=== PATIENT | male | born 1990 | race African-American/Black ===

== ENCOUNTER 2017-09-04 13:07 | Inpatient (IN) | payer BC ==
[2017-09-04 13:23] VITALS: BMI 24.7
[2017-09-04] MEDS ORDERED: SODIUM CHLORIDE 1,000 ML IV STA (14:36)
[2017-09-04] MEDS ORDERED: PANTOPRAZOLE SODIUM 40 MG VIAL IVPUSH ONE ×2 (14:36→14:42)
[2017-09-04 14:47] LABS: MCHC 29.7 g/dl (32.0-35.9); MEAN CELL VOLUME 59.4 fl (80-96); MEAN PLT VOLUME 7.1 fl (7.5-11.1); PLATELET COUNT 524 K/MM3 (134-434); RBC 2.53 M/mm3 (4.00-5.60); RDW 21.8 % (11.9-15.9); WHITE BLOOD COUNT 9.5 K/mm3 (4.0-10.0)
--- NOTE | 2017-09-04 14:58 | PDOC ---
History of Present Illness - General Chief Complaint: Rectal Bleed Stated Complaint: UGI BLEED, LOSS OF HEARING (PCP) Time Seen by Provider: 09/04/17 14:18 History Source: Patient Exam Limitations: No Limitations - History of Present Illness Initial Comments: 09/04/17 14:49 Patient is a 27M with history of gastric ulcer x2 (GI - Dr Estrada) and viral meningitis sent here today for upper GI bleed by his PCP Dr Chen. He reports 4-5 days of dark tarry stool. Patient reports that a stool for occult blood was positive at Dr Chen's office today. Patient reports an episode of syncope Monday at 3AM with associated weakness, shortness of breath, and chest pain. Denies fevers, chills, vomiting. Denies pain with urination. Past History - Past Medical History Allergies/Adverse Reactions: Allergies Allergy/AdvReac Type Severity Reaction Status Date / Time No Known Allergies Allergy Verified 09/04/17 13:19 Home Medications: Ambulatory Orders NK [No Known Home Medication] 09/04/17 Asthma: Yes COPD: No - Suicide/Smoking/Psychosocial Hx Smoking Status: No Smoking History: Former smoker Have you smoked in the past 12 months: Yes Number of Cigarettes Smoked Daily: 3 Information on smoking cessation initiated: No 'Breaking Loose' booklet given: 11/30/13 Hx Alcohol Use: No Drug/Substance Use Hx: No Substance Use Type: None Hx Substance Use Treatment: No Review of Systems - Review of Systems Able to Perform ROS?: Yes Comments:: 09/04/17 14:58 GENERAL/CONSTITUTIONAL: No fever or chills. Positive for weakness. HEAD, EYES, EARS, NOSE AND THROAT: No change in vision. No sore throat. CARDIOVASCULAR: Positive for chest pain and shortness of breath RESPIRATORY: No cough, wheezing, or hemoptysis. GASTROINTESTINAL: No nausea, vomiting. Positive for melanotic stool. GENITOURINARY: No dysuria, frequency, or change in urination. MUSCULOSKELETAL: No joint or muscle swelling or pain. No neck or back pain. SKIN: No rash NEUROLOGIC: No headache, vertigo, loss of consciousness, or change in strength/ sensation. ENDOCRINE: No increased thirst. No abnormal weight change HEMATOLOGIC/LYMPHATIC: No anemia, easy bleeding, or history of blood clots. ALLERGIC/IMMUNOLOGIC: No hives or skin allergy. *Physical Exam - Vital Signs Last Vital Signs Temp Pulse Resp BP Pulse Ox 98.9 F 92 H 19 124/62 100 09/04/17 13:19 09/04/17 13:19 09/04/17 13:19 09/04/17 13:19 09/04/17 13:19 - Physical Exam Comments: 09/04/17 15:00 GENERAL: Awake, alert, and fully oriented, in no acute distress HEAD: No signs of trauma, normocephalic, atraumatic EYES: PERRLA, EOMI, sclera anicteric, conjunctiva clear ENT: Auricles normal inspection, hearing grossly normal, nares patent, oropharynx clear without exudates. Moist mucosa LUNGS: No distress, speaks full sentences, clear to auscultation bilaterally HEART: Regular rate and rhythm, normal S1 and S2, no murmurs, rubs or gallops, peripheral pulses normal and equal bilaterally. ABDOMEN: Soft, nontender, normoactive bowel sounds. No guarding, no rebound. No masses EXTREMITIES: Normal inspection, Normal range of motion, no edema. No clubbing or cyanosis. NEUROLOGICAL: Cranial nerves II through XII grossly intact. Normal speech, no focal sensorimotor deficits SKIN: Warm, Dry, normal turgor, no rashes or lesions noted. RECTAL: Deferred to positive occult blood testing in PCP office Moderate Sedation - Procedure Monitoring Vital Signs: Vital Signs Temp Pulse Resp BP Pulse Ox 98.9 F 92 H 19 124/62 100 09/04/17 13:19 09/04/17 13:19 09/04/17 13:19 09/04/17 13:19 09/04/17 13:19 ED Treatment Course - LABORATORY CBC & Chemistry Diagram: 09/04/17 14:34 09/04/17 14:39 - RADIOLOGY Radiology Studies Ordered: Category Date Time Status CHEST PA & LAT [RAD] Stat Radiology 09/04/17 14:36 Ordered Medical Decision Making - Medical Decision Making 09/04/17 15:00 Patient is 27M with history of gastric ulcer and viral meningitis here with probable upper GI bleed. Vital signs stable and normal, but patient is young and otherwise healthy and would be able to compensate despite blood loss. Workup initiated with cbc, cmp, trop, ekg, cxr, type and screen, INR. Started with protonix bolus and protonix drip. Dr Estrada notified of patient. 09/04/17 17:00 Laboratory Tests 09/04/17 09/04/17 09/04/17 14:34 14:39 14:39 WBC 9.5 Hgb 4.5 L* D Plt Count 524 H D INR 1.12 BUN 14 D Creatinine 1.1 Troponin I < 0.02 CBC shows hgb 4.5, given initial 2U. Dr Chen paged for admission. QUINCY Cedillo covering for Dr Estrada contacted. Dr Chen accepted. *DC/Admit/Observation/Transfer Diagnosis at time of Disposition: GI bleed - Discharge Dispostion Condition at time of disposition: Stable Decision to Admit order: Yes - Referrals Referrals: Brandon Chen MD [Primary Care Provider] - - Patient Instructions - Post Discharge Activity
[2017-09-04] MEDS ORDERED: PANTOPRAZOLE SODIUM 40 MG VIAL ONE ×2 (15:03→15:19)
[2017-09-04 15:07] LABS: INR 1.12 (0.82-1.09); PROTHROMBIN TIME (PATIENT) 12.7 SEC (9.7-13.0)
[2017-09-04 15:09] LABS: ACTIVATED PTT 22.3 SECONDS (26.9-34.4)
[2017-09-04 15:14] LABS: ALBUMIN 3.6 g/dl (3.4-5.0); ANION GAP 5 (8-16); BILIRUBIN,TOTAL 0.2 mg/dL (0.2-1.0); BLOOD UREA NITROGEN 14 mg/dL (7-18); CHLORIDE 108 mmol/L (98-107); CO2 26 mmol/L (21-32); CREATININE 1.1 mg/dL (0.7-1.3); GLUCOSE,RANDOM 101 mg/dL (74-106); SODIUM 139 mmol/L (136-145)
[2017-09-04] MEDS ORDERED: PANTOPRAZOLE SODIUM 40 MG/100 ML BAG IVPB ONE (15:17)
[2017-09-04 15:19] LABS: HEMOGLOBIN 4.5 GM/dL (11.7-16.9); MCH 17.6 pg (25.7-33.7)
--- NOTE | 2017-09-04 15:21 | PDOC ---
Attending Attestation - Resident Resident Name: Yifan Nieto - ED Attending Attestation I have performed the following: I have examined & evaluated the patient, The case was reviewed & discussed with the resident, I agree w/resident's findings & plan, Exceptions are as noted - HPI HPI: 09/04/17 15:40 27-year-old male with past medical history of gastric ulcers presents with anemia. Patient reports lately of having several days of dark stools, generalized weakness and lightheadedness. Patient is reporting some shortness of breath on exertion. Patient was sent to the ER for an evaluation. Denies fevers or chills. - Physicial Exam PE: 09/04/17 15:42 GENERAL: Awake, alert, and fully oriented, in no acute distress. HEAD: No signs of trauma EYES: PERRLA, EOMI, ENT: Auricles normal inspection, hearing grossly normal, nares patent NECK: Normal ROM, supple LUNGS: Breath sounds equal, clear to auscultation bilaterally. No wheezes, and no crackles HEART: Regular rate and rhythm, normal S1 and S2, no murmurs, rubs or gallops ABDOMEN: Soft, nontender. No guarding, no rebound. No masses EXTREMITIES: Normal range of motion, no edema. No clubbing or cyanosis. No cords, erythema, or tenderness NEUROLOGICAL: Cranial nerves II through XII grossly intact. Normal speech, normal gait SKIN: Warm, Dry, normal turgor, no rashes or lesions noted. - Medical Decision Making 09/04/17 16:36 Vital Signs Temp Pulse Resp BP Pulse Ox 98.9 F 92 H 19 124/62 100 09/04/17 13:19 09/04/17 13:19 09/04/17 13:19 09/04/17 13:19 09/04/17 13:19 27 year old male p/w UGIB. Hgb noted to be in 4s GI Dr. Cedillo consulted who is here seeing patient. Protonix bolus and drip. Admit. Heart Score/ECG Review #1 ECG reviewed & interpreted by me at: 15:15 09/04/17 16:41 NSR 79, LVH, no std/ger, normal axis, normal intervals, QTC 412 msec
[2017-09-04] MEDS: PANTOPRAZOLE SODIUM 80 MG in SODIUM CHLORIDE 100 ML IVPB SCH (15:31)
[2017-09-04 16:30] LABS: ALK PHOS 49 U/L (45-117); SGOT/AST 15 U/L (15-37)
--- NOTE | 2017-09-04 16:49 | PN ---
Progress Note (short form) - Note Progress Note: GI CONSULTATION PLEASE SEE THE COMPLETE DICATATION PT KNOWN TO DR ROSE SEEN 2016 and 2017 for peptic ulcer disease had EGD 2016 with aNTRAL GASTRITIS AND BULB DEFORMUITY ADMIT WITH MARKED SYMPTOMATIC ANEMIA G++ STOOL BY REPORT AND HGB 4.5 MILD HYPOGASTRIC CRAMPING NO OTHER GI C/O PT REFUSES MY MELISSA/ STATES DR COLLAZO DID IT AND IT WAS + HEMODYNE STABLE SUB-ACUTE BLEED UGI SOURSE MOST LIKELY, BUT BUN IS NORMAL, WHICH WOULD BE EXPECTED IN SLOW TRANSIT NEEDS DX EGD EXAM ONCE MORE STABILIZED AND HGB IMPROVED RECC: CLEARS PO/ NPO AT [facility]/ F/U H/H IV PPI DRIP DX EGD 09/05---PT CONSENTS IF NO SOURCE, WILL NEED COLON +/- CAPSULE THANKS, MD BENITO
[2017-09-04 17:12] LABS: SGPT/ALT 24 U/L (12-78)
--- NOTE | 2017-09-04 18:01 | EKG ---
Test Reason : Blood Pressure : / mmHG Vent. Rate : 079 BPM Atrial Rate : 079 BPM P-R Int : 184 ms QRS Dur : 096 ms QT Int : 360 ms P-R-T Axes : 069 029 015 degrees QTc Int : 412 ms NORMAL SINUS RHYTHM WITH SINUS ARRHYTHMIA MODERATE VOLTAGE CRITERIA FOR LVH, MAY BE NORMAL VARIANT BORDERLINE ECG NO PREVIOUS ECGS AVAILABLE Confirmed by LOUISA AMBROSIO MD ([id number]) on 09/04/2017 6:00:49 PM Referred By: Confirmed By:LOUISA AMBROSIO MD
--- NOTE | 2017-09-04 18:17 | CONS ---
DATE OF CONSULTATION: 09/04/2017 GASTROENTEROLOGY CONSULTATION HISTORY OF PRESENT ILLNESS: I was asked by the ER and to evaluate the patient for GI bleeding. The patient is a 27-year-old gentleman who is known to my partner, Dr. Estrada. He was seen in our office last in April of 2016. First he was seen in April of 2015; at that time, he was noted to have had some dark stools, and he underwent an upper endoscopy with Dr. Estrada, who detected antral gastritis as well as a deformed duodenal bulb, suspicion of a duodenal bulb ulcer. He had had bleeding prior to that. Dr. Estrada suspected H. pylori as the culprit, but it is unclear the patient was treated. The patient then returned a year later, April of 2016, and again he was having some abdominal discomfort similar to what he had at the time of the prior bleeding. He was placed on Zantac which did not help. Dr. Estrada saw him, again recommended H. pylori therapy which is unclear that he took. At that time, he had no blood on rectal exam, and he was placed on a proton pump inhibitor. We have not seen the patient since that time. He tells me he had been feeling well until recently when he noted some dizziness, weakness, and some dark stools of a couple days' duration. For the past few days, he has had abdominal discomfort, hypogastric cramping, very dark stools. He went and saw Dr. Chen today, who did a rectal exam and noted that he had significant blood in the stool and was referred to the emergency room where he was noted to have a hemoglobin of 4.5, and we were called for evaluation. He had an episode of near syncope a couple days ago but denies shortness of breath or chest pain. He denies previous chills, vomiting. He denies any spontaneous bright red blood per rectum. The patient is not having diarrhea. His appetite is good. He likes to eat. He has not been on any anticoagulation, nor does he take any nonsteroidals. The patient otherwise has no known drug allergies. Takes no medications. Has had no prior surgery. He denies a family history of significant GI disease. The patient says he has mild asthma and he had been a smoker and had quit. He rarely drinks. He is single, and he currently is working. He works for the [employer]. PHYSICAL EXAMINATION: General: Currently in the emergency room, he is saturating at 100%. Vital signs: His blood pressure is 124/62, and his pulse is in the 90s. He is afebrile, and he appears quite comfortable. He is up walking about in no acute distress. HEENT: Sclerae anicteric. Neck: Supple. Lungs: Clear. Heart: Regular. Abdomen: Soft, flat, thin, and symmetric. Bowel sounds are active. There are no masses, rebound, or guarding. Rectal: I asked to perform, and he would not allow. He adamantly denies rectal exam, telling me Dr. Chen had done it earlier today. He has a hemoglobin of 4.5 and a hematocrit of 15, a white count of 9.5, and a platelet count of 524,000. His INR is 1.1. His chemistries reveal a BUN of 14, a creatinine of 1.1. Sodium 139, potassium of 4, chloride 108. His liver enzymes are all unremarkable, and his albumin is 3.6. IMPRESSION: The patient is a 27-year-old gentleman with prior history of peptic ulcer disease who comes in with a couple days of weakness, lightheadedness, near syncope, abdominal discomfort, and cramping with dark stools known to have strongly occult blood positive and hemoglobin of 4.5. It is unclear what is his baseline hemoglobin had been in the past. It appears that at [facility] he last had a hemoglobin here in 2013 that was 12.5. At the present time, he is hemodynamically stable, so I suspect there is an element of acute on chronic blood loss. His BUN is normal, raising a question of where the source would be. Based on the presentation, one would suspect this is a slow upper gastrointestinal bleed; however, with the BUN that is normal makes it questionable. I think regardless clearly he needs to have an upper endoscopy when he is hemodynamically more stable and his hemoglobin has improved. For now I would recommend a clear liquid diet, proton pump inhibitor drip which he is currently on, n.p.o. at midnight for upper endoscopy following up the hemoglobin and hematocrit. He is going to need transfusion of packed red blood cells and if an endoscopy is unrevealing, as I have explained to him, then he is going to need a colonoscopy to follow. We will continue to be available to aid and manage this patient. NEO OLIVER M.D. [id number]
--- NOTE | 2017-09-04 19:59 | HP ---
Admitting History and Physical - Admission Chief Complaint: 27 y.o was sent today from the office with c/o palpitations, SOB, black stools x4 days, episode of passing out this weekend. In the office extreme pallor, tachycardia, black, guaiac positive stool. Sent to ER for further management History of Present Illness: PUD in the past, UGI bleed. Asthma. meningitis. History Source: Patient Limitations to Obtaining History: No Limitations - Past Medical History USER ACCEPTANCE TESTER: Yes: Other (AGUILAR, light, sound sensitivity, vomiting.). No: Alzheimer's, CVA , Dementia, Migraine, Multiple Sclerosis, Peripheral Neuropathy, Parkinson's, Seizure, Syncope, TIA, Vertigo Pulmonary: Yes: Asthma. No: Cancer, COPD, O2 Dependent, Pneumonia, Previously Intubated, Pulmonary Embolus, Pulmonary Fibrosis, Sleep Apnea Gastrointestinal: Yes: Other. No: Ascites, Cancer, Constipation, Crohn's Disease, Diverticulitis, Diverticulosis, Esophageal Varices, Gastritis, GERD, GI Bleed, Hemorrhoids, Hiatal Hernia, Inflamatory Bowel Disease, Irritable Bowel Disease, Pancreatitis, Peptic Ulcer Disease, Ulcerative Colitis Renal/: No: Renal Failure, Renal Inusuff, BPH, Cancer, Hematuria, Hemodialysis , Neurogenic Bladder, Renal Calculi, UTI, Other Heme/Onc: Yes: Anemia Infectious Disease: No: AIDS, C-Diff, Herpes Zoster, HIV, MRSA, STD's, Tuberculosis, VREF, Other Psych: No: Addictions, Anxiety, Bipolar, Depression, Panic, Psychosis, Schizophrenia, Other Rheumatology: No: Fibromyalgia, Gout, Lupus, Rheumatoid Arthritis, Sarcoidosis, Vasculitis, Other Endocrine: No: Banner's Disease, Franny's Disease, Diabetes Insipidus, Diabetes Mellitus, Hyperparathyroidism, Hyperthyroidism, Hypothyroidism, Osteopenia, SIADH, Other Dermatology: No: Basal Cell, Cellulitis, Eczema, Melanoma, Psoriasis, Squamous Cell, Other - Past Surgical History Past Surgical History: No: None, AAA Repair, AICD, Amputation, Appendectomy, Arthrosocopy, AV Fistula/Graft, Bariatric Surgery, Breast Biopsy, Bypass, CABG, Carotid Endarterectomy, Cataract Removal, Cholecystectomy, Colectomy, Colonoscopy, Colostomy, Craniotomy, , Cystectomy, Hernia Repair, Hysterectomy, Ileal Conduit, Ileosotomy, Joint Replacement, Kidney Transplant, Laminectomy, Liver Transplant, Mastectomy, Nephrectomy, Oopherectomy, Orchiectomy, Permanent Pacemaker, Prostatectomy, Splenectomy, Stent, Thoracotomy , TURP, Tonsillectomy, Tubal Ligation, Upper Endoscopy, Valve Replacement, Vasectomy, Vein Stripping/Ligation - Smoking History Smoking history: Former smoker Have you smoked in the past 12 months: Yes Aproximately how many cigarettes per day: 3 - Alcohol/Substance Use Hx Alcohol Use: No - Social History History of Recent Travel: No Home Medications - Allergies Allergies/Adverse Reactions: Allergies Allergy/AdvReac Type Severity Reaction Status Date / Time No Known Allergies Allergy Verified 09/04/17 13:19 - Home Medications Home Medications: Ambulatory Orders NK [No Known Home Medication] 09/04/17 Family Disease History - Family Disease History Family History: Unremarkable Family Disease History: Other: Mother (LICEA) Review of Systems - Review of Systems Constitutional: reports: Weakness. denies: Fever Eyes: denies: Eye Pain, Photophobia, Recent Change in Vision HENT: reports: No Symptoms Cardiovascular: reports: No Symptoms, Chest Pain, Palpitations, Shortness of Breath Respiratory: reports: SOB, SOB on Exertion. denies: Wheezing Gastrointestinal: reports: Abdominal Pain, Other (Tarry stool) Genitourinary: reports: No Symptoms Breasts: reports: No Symptoms Reported Integumentary: reports: Other (pallor) Neurological: reports: No Symptoms Endocrine: reports: No Symptoms Hematology/Lymphatic: reports: No Symptoms Psychiatric: reports: No Symptoms Physical Examination Vital Signs: Vital Signs Temperature 98.6 F 09/04/17 18:10 Pulse Rate 78 09/04/17 18:10 Respiratory Rate 18 09/04/17 18:10 Blood Pressure 118/64 09/04/17 18:10 O2 Sat by Pulse Oximetry (%) 100 09/04/17 18:10 Constitutional: Yes: Calm, Mild Distress Eyes: Yes: Conjunctiva Clear, EOM Intact HENT: Yes: Atraumatic, Normocephalic. No: Drooling Neck: Yes: Supple, Trachea Midline. No: Lymphadenopathy Cardiovascular: Yes: Regular Rate and Rhythm, Tachycardia, S1, S2 Respiratory: Yes: Regular, CTA Bilaterally Gastrointestinal: Yes: Normal Bowel Sounds, Soft. No: Abdomen, Obese, Ascites, Palpable Mass, Pulsatile Mass, Vomiting ...Rectal Exam: Yes: Guaiac Positive, Sphincter Tone Normal. No: Erythema Renal/: Yes: WNL Breast(s): Yes: WNL Musculoskeletal: Yes: WNL Extremities: Yes: WNL Edema: No Peripheral Pulses WNL: Yes Integumentary: Yes: WNL Neurological: Yes: WNL ...Motor Strength: WNL Psychiatric: Yes: WNL Labs: CBC, BMP 09/04/17 14:34 09/04/17 14:39 Imaging - Results X-ray: Report Reviewed EKG: Report Reviewed Problem List - Problems (1) GI bleed Assessment/Plan: Dr Cedillo note appreciated. Started with PRBC Tx-2 units IV fluids PPI IV NPO In AM EGD Code(s): K92.2 - GASTROINTESTINAL HEMORRHAGE, UNSPECIFIED Qualifiers: GI bleed type/associated pathology: gastrointestinal hemorrhage with hematemesis Qualified Code(s): K92.0 - Hematemesis
[2017-09-05] MEDS: LACTATED RINGERS SOLUTION 1,000 ML/1,000 ML INFUS.BAG IV SCH (00:20)
[2017-09-05] MEDS ORDERED: PANTOPRAZOLE SODIUM 40 MG VIAL ONE (01:48)
[2017-09-05 01:55] LABS: BASO % 2.4 % (0-2.0); EOS % 4.4 % (0-4.5); HEMOGLOBIN 6.5 GM/dL (11.7-16.9); LYMPH % 27.2 % (8-40); MCH 20.6 pg (25.7-33.7); MCHC 31.1 g/dl (32.0-35.9); MEAN CELL VOLUME 66.2 fl (80-96); MEAN PLT VOLUME 7.6 fl (7.5-11.1); MONO % 9.1 % (3.8-10.2); NEUT % 56.9 % (42.8-82.8); PLATELET COUNT 472 K/MM3 (134-434); RBC 3.18 M/mm3 (4.00-5.60); RDW 26.5 % (11.9-15.9)
[2017-09-05 02:18] LABS: WHITE BLOOD COUNT 6.6 K/mm3 (4.0-10.0)
[2017-09-05] MEDS: PANTOPRAZOLE SODIUM 80 MG in SODIUM CHLORIDE 100 ML IVPB SCH ×3 (02:23→16:05)
--- NOTE | 2017-09-05 12:30 | PN ---
Progress Note (short form) - Note Progress Note: Patient is receiving 4th unit of PRBC. No new complaints. Vital Signs Temp 98.4 F 09/05/17 08:31 Pulse 85 09/05/17 08:31 Resp 16 09/05/17 08:31 BP 114/78 09/05/17 08:31 Pulse Ox 96 09/05/17 08:00 Intake & Output 09/04/17 09/05/17 09/05/17 23:59 11:59 23:59 Weight 149 lb 149 lb Other: Voiding Method Toilet Height 5 ft 5 in 5 ft 5 in Body Mass Index (BMI) 24.7 24.7 Weight Measurement Method Est/Stated by Patient Awake, alert. Neck no JVD Lungs are Clear Heart S1S2 regular Abdomen soft, NT, ND Rectal deferred No CCE Laboratory Results - last 24 hr 09/04/17 09/04/17 09/04/17 14:34 14:39 14:39 WBC 9.5 RBC 2.53 L D Hgb 4.5 L* D Hct 15.0 L D MCV 59.4 L MCH 17.6 L MCHC 29.7 L RDW 21.8 H D Plt Count 524 H D MPV 7.1 L D Neutrophils % Lymphocytes % Monocytes % Eosinophils % Basophils % Nucleated RBC % PT with INR 12.70 INR 1.12 PTT (Actin FS) 22.3 L Sodium 139 Potassium 4.0 Chloride 108 H Carbon Dioxide 26 Anion Gap 5 L BUN 14 D Creatinine 1.1 Creat Clearance w eGFR > 60 Random Glucose 101 Calcium 8.0 L Total Bilirubin 0.2 AST 15 D ALT 24 D Alkaline Phosphatase 49 Creatine Kinase 141 Troponin I < 0.02 Total Protein 7.0 Albumin 3.6 Blood Type Antibody Screen Crossmatch 09/04/17 09/04/17 09/05/17 14:39 16:35 01:43 WBC 6.6 D RBC 3.18 L D Hgb 6.5 L* D Hct 21.0 L D MCV 66.2 L D MCH 20.6 L MCHC 31.1 L RDW 26.5 H Plt Count 472 H MPV 7.6 Neutrophils % 56.9 D Lymphocytes % 27.2 D Monocytes % 9.1 D Eosinophils % 4.4 D Basophils % 2.4 H D Nucleated RBC % 0 PT with INR INR PTT (Actin FS) Sodium Potassium Chloride Carbon Dioxide Anion Gap BUN Creatinine Creat Clearance w eGFR Random Glucose Calcium Total Bilirubin AST ALT Alkaline Phosphatase Creatine Kinase Troponin I Total Protein Albumin Blood Type A POSITIVE A POSITIVE Antibody Screen Negative Crossmatch See Detail See Detail Current Active Problems Problem Status Onset GI bleed Acute R/O UGI bleed vs other etiology. Plan Continue PPI EGD Diet as per GI Problem List - Problems (1) GI bleed Code(s): K92.2 - GASTROINTESTINAL HEMORRHAGE, UNSPECIFIED Qualifiers: GI bleed type/associated pathology: gastrointestinal hemorrhage with hematemesis Qualified Code(s): K92.0 - Hematemesis
[2017-09-05 13:07] LABS: BASO % 1.8 % (0-2.0); EOS % 3.6 % (0-4.5); HEMATOCRIT 27.7 % (35.4-49); HEMOGLOBIN 9.1 GM/dL (11.7-16.9); LYMPH % 21.3 % (8-40); MCH 22.7 pg (25.7-33.7); MEAN CELL VOLUME 68.7 fl (80-96); MEAN PLT VOLUME 8.6 fl (7.5-11.1); MONO % 10.6 % (3.8-10.2); NEUT % 62.7 % (42.8-82.8); PLATELET COUNT 457 K/MM3 (134-434); RBC 4.03 M/mm3 (4.00-5.60); RDW 24.7 % (11.9-15.9); WHITE BLOOD COUNT 5.3 K/mm3 (4.0-10.0)
[2017-09-05 13:33] LABS: ALBUMIN 3.5 g/dl (3.4-5.0); ANION GAP 2 (8-16); CALCIUM 8.2 mg/dL (8.5-10.1); CHLORIDE 111 mmol/L (98-107); CO2 29 mmol/L (21-32); GLUCOSE,RANDOM 80 mg/dL (74-106); MAGNESIUM 2.2 mg/dL (1.8-2.4); POTASSIUM 4.2 mmol/L (3.5-5.1); SODIUM 142 mmol/L (136-145)
[2017-09-05 13:37] LABS: ALK PHOS 53 U/L (45-117); BILIRUBIN,TOTAL 1.4 mg/dL (0.2-1.0); BLOOD UREA NITROGEN 10 mg/dL (7-18); SGOT/AST 13 U/L (15-37); SGPT/ALT 22 U/L (12-78); TOT PROT 6.9 g/dl (6.4-8.2)
--- NOTE | 2017-09-05 15:16 | PN ---
Progress Note (short form) - Note Progress Note: GI Procedure NOte: Please see EGD report. Partial gastric outlet obstruction due to ulcer disease was found. Biopsies were taken. Will obtain CT scan and advance diet as tolerated. Malignancy cannot be excluded.
[2017-09-05] MEDS: MAG HYDROX/AL HYDROX/SIMETH 30 ML UNIT-DOSE CUP PO SCH ×2 (17:19→21:15)
[2017-09-06] MEDS: MAG HYDROX/AL HYDROX/SIMETH 30 ML UNIT-DOSE CUP PO SCH ×3 (00:07→11:30)
[2017-09-06] MEDS: LACTATED RINGERS SOLUTION 1,000 ML/1,000 ML INFUS.BAG IV SCH (04:00)
[2017-09-06] MEDS: PANTOPRAZOLE SODIUM 80 MG in SODIUM CHLORIDE 100 ML IVPB SCH (04:00)
[2017-09-06 06:40] LABS: BASO % 1.4 % (0-2.0); EOS % 4.9 % (0-4.5); HEMATOCRIT 25.7 % (35.4-49); HEMOGLOBIN 8.5 GM/dL (11.7-16.9); INR 1.14 (0.82-1.09); MCH 22.4 pg (25.7-33.7); MEAN CELL VOLUME 67.8 fl (80-96); MEAN PLT VOLUME 8.6 fl (7.5-11.1); MONO % 11.1 % (3.8-10.2); NEUT % 68.6 % (42.8-82.8); PLATELET COUNT 402 K/MM3 (134-434); PROTHROMBIN TIME (PATIENT) 12.9 SEC (9.7-13.0); RDW 25.5 % (11.9-15.9)
[2017-09-06 07:19] LABS: CHLORIDE 109 mmol/L (98-107); POTASSIUM 3.9 mmol/L (3.5-5.1); SODIUM 142 mmol/L (136-145)
[2017-09-06 07:25] LABS: AMYLASE 86 U/L (25-115); ANION GAP 7 (8-16); BLOOD UREA NITROGEN 8 mg/dL (7-18); CO2 26 mmol/L (21-32); GLUCOSE,RANDOM 77 mg/dL (74-106)
--- NOTE | 2017-09-06 08:11 | PN ---
Progress Note (short form) - Note Progress Note: The results of EGD discussed with GI and the patient SMALL HH NORMAL ESOPHAGUS. LARGE NON-BLEEDING ULCER IN PRE-PYLORIC REGION OF THE STOMACH, SHORT STRICTURE D 2.4 CM IN THE 1ST PART OF THE ABDOMEN. ALL BIOPSIES PENDING CT SCAN ORDERED Vital Signs Temp 98.4 F 09/06/17 06:00 Pulse 66 09/06/17 06:00 Resp 18 09/06/17 06:00 BP 101/59 09/06/17 06:00 Pulse Ox 100 09/05/17 14:53 Intake & Output 09/05/17 09/05/17 09/06/17 11:59 23:59 11:59 Intake Total 580 1420 Balance 580 1420 Weight 149 lb 147 lb Intake: IV 0 1320 LACTATED RINGERS SOLUTION 1320 1,000 ml In 1,000 ml @ 100 mls/hr IV ASDIR SAMANTHA Rx#:[id number] Oral 580 100 Other: Voiding Method Toilet Toilet # Unmeasured Voids Void 2 Height 5 ft 5 in Body Mass Index (BMI) 24.7 Weight Measurement Method Standing Scale PE AWAKE, ANXIOUS. NECK-NO JVD LUNGS CLEAR HEART S1S2 REGULAR ABDOMEN SOFT, NT NO CCE Laboratory Results - last 24 hr 09/04/17 09/05/17 09/05/17 16:35 12:37 12:37 WBC 5.3 RBC 4.03 D Hgb 9.1 L D Hct 27.7 L D MCV 68.7 L MCH 22.7 L MCHC 33.0 RDW 24.7 H Plt Count 457 H MPV 8.6 D Neutrophils % 62.7 Lymphocytes % 21.3 D Monocytes % 10.6 H Eosinophils % 3.6 Basophils % 1.8 Nucleated RBC % 0 PT with INR INR Sodium 142 Potassium 4.2 Chloride 111 H Carbon Dioxide 29 Anion Gap 2 L BUN 10 D Creatinine 1.0 Creat Clearance w eGFR > 60 Random Glucose 80 D Calcium 8.2 L Phosphorus 3.0 Magnesium 2.2 Ferritin Total Bilirubin 1.4 H D AST 13 L ALT 22 Alkaline Phosphatase 53 C-Reactive Protein Total Protein 6.9 Albumin 3.5 Total Amylase Blood Type A POSITIVE Crossmatch See Detail 09/06/17 09/06/17 09/06/17 05:00 05:00 06:00 WBC 6.0 RBC 3.80 L Hgb 8.5 L Hct 25.7 L MCV 67.8 L MCH 22.4 L MCHC 33.0 RDW 25.5 H Plt Count 402 MPV 8.6 Neutrophils % 68.6 Lymphocytes % 14.0 D Monocytes % 11.1 H Eosinophils % 4.9 H Basophils % 1.4 Nucleated RBC % 0 PT with INR 12.90 INR 1.14 Sodium 142 Potassium 3.9 Chloride 109 H Carbon Dioxide 26 Anion Gap 7 L BUN 8 Creatinine 1.0 Creat Clearance w eGFR Random Glucose 77 Calcium 8.0 L Phosphorus Magnesium Ferritin 6.336 L Total Bilirubin AST ALT Alkaline Phosphatase C-Reactive Protein < 0.3 Total Protein Albumin Total Amylase 86 Blood Type Crossmatch IMP Current Active Problems Problem Status Onset GI bleed ANTAL ULCER IRON DEFICIENCY ANEMIA DUE TO BLEEDING DUODENAL STRICTURE Acute PLAN CBC AM ADVANCE DIET PROTONIX DRIP SX CONSULT CT SCAN IRON/FOLATE SUPPLEMENTS Problem List - Problems (1) GI bleed Code(s): K92.2 - GASTROINTESTINAL HEMORRHAGE, UNSPECIFIED Qualifiers: GI bleed type/associated pathology: gastrointestinal hemorrhage with hematemesis Qualified Code(s): K92.0 - Hematemesis
[2017-09-06] MEDS ORDERED: IRON SUCROSE INJECTION 100 MG in SODIUM CHLORIDE 95 ML IVPB ONE (08:12)
--- NOTE | 2017-09-06 09:48 | PN ---
Progress Note (short form) - Note Progress Note: surgery pt seen and examined. full consult dictated. 27m with known pud treated in 2016, doesnt want to take ppi because of side effects he has read about, presents with weight loss and gi bleed. EGD shows prepyloric ulcer and duodenal ulcer with possible duodenal stricture and gastric outlet obstruction. Ct shows no obstruction and pt is not vomiting. pt received 4 units prbc. biopsies pending abd-soft, nt Plan- gastric and duodenal ulcer, no longer bleeding, biopsies pending, no obstruction on ct. would suggest medical management and waiting on biopsy results. will be available if bleeding resumes and GI/IR unable to stop or if patient develops complete obstruction. If malignant may require tertiary care center pending location and results.
[2017-09-06] MEDS ORDERED: PANTOPRAZOLE 40 MG TABLET (FP) PO SCH (10:00)
[2017-09-06] MEDS ORDERED: FOLIC ACID 1 MG TABLET (FP) PO SCH (10:00)
--- NOTE | 2017-09-06 11:11 | CONS ---
DATE OF CONSULTATION: 09/06/2017 REASON FOR CONSULTATION: Gastric outlet obstruction. REQUESTING PHYSICIAN: This is a consultation requested by the medical service, an inpatient consultation. BRIEF HISTORY: This is a 27-year-old male who has known peptic ulcer disease and was treated with Prilosec in 2016. He stopped taking the medication and felt his ulcer had healed. 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 He presents to [facility] complaining of weight loss and melena. He required 4 units of blood as his hemoglobin was 4.5, and he went for an upper endoscopy which showed an ulcer in his prepyloric channel that was likely the source of bleed and also causing a possible partial gastric outlet obstruction. In the duodenum, he had a smaller ulcer with a possible duodenal stricture. Afterwards, he had a CT scan of his abdomen and pelvis, which showed no evidence of gastric outlet obstruction or duodenal stricture. Request was made for surgical evaluation. The patient currently has no pain. He has received 4 units of blood in total and his hemoglobin has responded appropriately. PAST MEDICAL HISTORY: As in HPI. In addition, he has had asthma and a history of meningitis. PAST SURGICAL HISTORY: Nil. ALLERGIES: He has no known drug allergies. SOCIAL HISTORY: Negative for alcohol. Negative for tobacco. FAMILY HISTORY: Possible for a prostate malignancy in his father, but he is not sure. MEDICATIONS: His home medications have been reviewed, and he was not on any anti-ulcer therapy. REVIEW OF SYSTEMS: General: Denies fatigue or malaise. Cardiac: Denies chest pain or palpitations. Respiratory: Denies shortness of breath or wheeze. Gastrointestinal: As in HPI. Denies diarrhea. Denies further blood in his stool. Genitourinary: Denies dysuria. Musculoskeletal: Denies joint pain, joint swelling. Psychiatric: Denies anxiety, depression, or hearing voices. PHYSICAL EXAMINATION: General: This is a well-developed, well-nourished 27-year-old male in no distress. Vital signs: He is afebrile. His vital signs are stable. HEENT: His head is normocephalic. His sclerae anicteric. Neck: Supple. Chest: Clear. Abdomen: Soft, nontender. There are no surgical scars. There are no obvious hernias. Extremities: Have no edema. REVIEW OF HIS LABORATORY: His hemoglobin is 8.5 which is up from 4.5 after 4 transfusions, his platelet count is 402, his MCV is low at 67.8. His coagulation profile is unremarkable. His chemistries are unremarkable with a low ferritin. IMAGING: As in HPI. ASSESSMENT: This is a 27-year-old male with known peptic ulcer disease who has been off anti-ulcer therapy for 2 years who presents with a bleeding ulcer in his prepyloric area as well as a small ulcer in his duodenum. He is also noted to have a possible gastric outlet obstruction and duodenal structure on esophagogastroduodenoscopy, which is not confirmed clinically or by CT scan. RECOMMENDATIONS: At this point, I would not recommend partial gastrectomy. Patient should attempt medical management. Need to follow the results of the biopsies. Obviously if the patient rebleeds, and GI as well as IR is unable to stop it, I will be available for emergency surgery. Also, if he does develop a complete gastric outlet obstruction, can consider surgical intervention. If this is a malignancy, I will determine at the location as to whether or not he needs to be seen by a tertiary care center. DO BETO CRAWLEY/[id number]
--- NOTE | 2017-09-06 12:29 | PN ---
GI Progress Note Subjective: GI NOte: No vomiting or pain. CT scan does not reveal significant gastric outlet obstruction so have ordered soft diety for lunch. If tolereated and free of bleeding have no GI objections to bleeding. Discussed the need to avoid NSAIDs and nicotine and to take PPI religiously - Objective Vital Signs: Vital Signs Temperature 98.4 F 09/06/17 06:00 Pulse Rate 66 09/06/17 06:00 Respiratory Rate 18 09/06/17 08:00 Blood Pressure 101/59 09/06/17 06:00 O2 Sat by Pulse Oximetry (%) 100 09/06/17 08:00 Constitutional: No Distress ...Auscultate: Yes: Normoactive Bowel Sounds ...Palpate: Yes: Soft, Other (nontender) Labs: CBC, BMP 09/06/17 05:00 09/06/17 06:00 INR, PTT INR 1.14 (0.82-1.09) 09/06/17 05:00 Problem List - Problems (1) Duodenal ulcer disease Assessment/Plan: Resolved bleeding. If soft diet is tolerated can D/C on PPI to followup in our office. Reminded him of the need for a repeat EGD in 3 months. Code(s): K26.9 - DUODENAL ULCER, UNSP ACUTE OR CHRONIC, W/O HEMOR OR PERF (2) Gastric ulcer Code(s): K25.9 - GASTRIC ULCER, UNSP ACUTE OR CHRONIC, W/O HEMOR OR PERF (3) Acquired stricture of pylorus Code(s): K31.1 - ADULT HYPERTROPHIC PYLORIC STENOSIS
--- NOTE | 2017-09-06 15:30 | DS ---
Physical Examination Vital Signs: Vital Signs Temperature 98.4 F 09/06/17 06:00 Pulse Rate 66 09/06/17 06:00 Respiratory Rate 18 09/06/17 08:00 Blood Pressure 101/59 09/06/17 06:00 O2 Sat by Pulse Oximetry (%) 100 09/06/17 08:00 Constitutional: Yes: No Distress, Calm, Pallor Eyes: Yes: Conjunctiva Clear, EOM Intact HENT: Yes: Atraumatic, Normocephalic Neck: Yes: Supple, Trachea Midline Cardiovascular: Yes: Regular Rate and Rhythm. No: Bradycardia, Tachycardia Respiratory: Yes: Regular, CTA Bilaterally Gastrointestinal: Yes: Normal Bowel Sounds, Soft. No: Abdomen, Obese ...Rectal Exam: Yes: Deferred Renal/: No: Anuria, Bladder Distention Breast(s): Yes: WNL Musculoskeletal: Yes: WNL, Muscle Weakness Extremities: Yes: WNL Edema: No Peripheral Pulses WNL: Yes Integumentary: Yes: WNL Neurological: Yes: WNL ...Motor Strength: WNL Psychiatric: Yes: WNL Labs: CBC, BMP 09/06/17 05:00 09/06/17 06:00 Discharge Summary Reason For Visit: GASTROINTESTINAL HEMMORHAGE Current Active Problems Acquired stricture of pylorus (Acute) Duodenal ulcer disease (Acute) GI bleed (Acute) Gastric ulcer (Acute) Condition: Stable - Instructions Diet, Activity, Other Instructions: Dr. Walker will call in your protonix prescription to your [facility] by [email or web address]. 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 womack in his office. Please call to make an appointment. You will need an EGD in 3 months Referrals: Flaquito Womack MD [Staff Physician] - Brandon Chen MD [Primary Care Provider] - Disposition: HOME - Home Medications Comprehensive Discharge Medication List: Ambulatory Orders Folic Acid - 1 mg PO DAILY #30 tablet 09/06/17 Iron Ps Complex/B12/Folic Acid [Ferrex 150 Forte Capsule] 1 each PO AM #30 capsule 09/06/17 Mag Hydrox/Al Hydrox/Simeth [Mylanta Oral Suspension -] 30 ml PO Q6HPO cup Pantoprazole Sodium [Protonix -] 40 mg PO BID 30 Days #60 tablet.ec 09/06/17
[2017-09-06 15:44] VITALS: BP 119/62; PULSE 78; TEMP 98.2
[2017-09-07 08:11] LABS: CARCINOEMBRYONIC ANTIGEN 0.9 ng/mL (0.0-4.7)
--- NOTE | 2017-09-07 17:50 | PATH ---
Surgical Pathology Report Patient Name: TOMEKA SANCHEZ [facility]. Rec. #: [id number] /Age/Gender: 1990 (Age: 27) / M Account: [id number] Location: 4 W TELEMETRY U Taken: 09/05/2017 Received: 09/06/2017 Reported: 09/07/2017 Physicians: Ken Mason M.D. Specimen(s) Received A: GASTRIC & ANTRAL ULCERS B: 2ND PORTION C: PYLORIC STRUCTURE Clinical History GI bleed Postoperative diagnosis: Hiatal hernia, pyloric channel stricture, gastric and antral ulcers Final Diagnosis A. STOMACH, GASTRIC AND ANTRAL ULCERS, BIOPSY: GASTRIC OXYNTIC MUCOSA WITH MODERATE CHRONIC INFLAMMATION AND INCREASED EOSINOPHILS (UP TO 40 EOSINOPHILS/HPF). IMMUNOHISTOCHEMICAL STAIN FOR H. PYLORI IS NEGATIVE. SEE COMMENT. B. DUODENUM, SECOND PORTION, BIOPSY: SMALL BOWEL MUCOSA WITHOUT SIGNIFICANT PATHOLOGIC FINDINGS. C. PYLORIC STRICTURE, BIOPSY: GASTRIC MUCOSA WITH ACUTE AND CHRONIC INFLAMMATION, INCREASED EOSINOPHILS (UP TO 35 EOSINOPHILS/HPF) AND LAMINA PROPRIA FIBROSIS. IMMUNOHISTOCHEMICAL STAIN FOR H. PYLORI IS NEGATIVE. SMALL FRAGMENT OF DUODENAL MUCOSA WITH MILD INCREASE IN CHRONIC INFLAMMATORY CELLS AND EOSINOPHILS WITHIN LAMINA PROPRIA. SEE COMMENT. Comment: There are increased intraepithelial and lamina propria eosinophils (up to 40 eosinophils/HPF). 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 Eosinophils in the stomach are a non-specific finding and have been associated with food allergy, medication injury, Helicobacter infection and treatment, parasitic infection, Crohn's disease, hematologic/lymphoid disorders, and connective tissue disorders. Suggest clinical and serologic correlation. Electronically Signed Varsha Teague M.D. Gross Description A. Received in formalin, labeled "biopsy gastric and antral ulcers" are 4 woodard, irregular portions of soft tissue ranging from 3-0.5 cm. in greatest dimension. The specimens are submitted in toto in one cassette. B. Received in formalin, labeled "biopsy second portion of duodenum" are 2 woodard, irregular portions of soft tissue averaging 0.2 cm. in greatest dimension. The specimens are submitted in toto in one cassette. C. Received in formalin, labeled "biopsy pyloric stricture" are 2 woodard, irregular portions of soft tissue measuring 0.1 and 0.2 cm. in greatest dimension. The specimens are submitted in toto in one cassette. 09/06/2017 saudi09/06/2017
== END 2017-09-06 17:00 | disposition home or self-care (01) | DRG 378 ==
LOC: JER 13:07 → JERBED 16:44 → J4W 09-05 02:01
PROVIDERS: ADMIT Internal Medicine; ATTEND Internal Medicine
PROC: 30233N1 Transfusion of Nonautologous Red Blood Cells into Peripheral Vein, Percutaneous Approach (ICD-10-PCS; 2017-09-04)
PROC: 0DB68ZX Excision of Stomach, Via Natural or Artificial Opening Endoscopic, Diagnostic (ICD-10-PCS; 2017-09-05)
PROC: 0DB98ZX Excision of Duodenum, Via Natural or Artificial Opening Endoscopic, Diagnostic (ICD-10-PCS; principal; 2017-09-05 13:15)
DX: K92.2 Gastrointestinal hemorrhage, unspecified (principal); K31.5 Obstruction of duodenum; K31.1 Adult hypertrophic pyloric stenosis; D64.9 Anemia, unspecified; J45.909 Unspecified asthma, uncomplicated; K44.9 Diaphragmatic hernia without obstruction or gangrene; K25.9 Gastric ulcer, unspecified as acute or chronic, without hemorrhage or perforation; K26.9 Duodenal ulcer, unspecified as acute or chronic, without hemorrhage or perforation
CPT/HCPCS: 36415; 36430; 71046-TC-FY; 74177-TC; 80048; 80053; 82150; 82378; 82550; 82728; 82941; 83540; 83550; 83735; 84100; 84484; 85025; 85027; 85044; 85610; 85730; 86140; 86850; 86900; 86901; 86922; 88305-TC; 93005; 93010; 99285-25; J1756; P9038; P9058

== ENCOUNTER 2019-06-07 09:06 | Day surgery (SDC) | payer BC ==
[2019-06-07] MEDS ORDERED: FERRIC CARBOXYMALTOSE 750 MG in SODIUM CHLORIDE 250 ML IVPB ONE (10:00)
[2019-06-07 11:18] VITALS: BP 120/81; PULSE 80; TEMP 97.6
== END 2019-06-07 11:20 | disposition home or self-care (01) ==
LOC: JINFUSION 09:06 → J7W 09:07 → JINFUSION 11:20
PROVIDERS: ATTEND Internal Medicine Gastroenterology
PROC: 3E033GC Introduction of Other Therapeutic Substance into Peripheral Vein, Percutaneous Approach (ICD-10-PCS; principal; 2019-06-07)
DX: D64.9 Anemia, unspecified (principal)
CPT/HCPCS: 96365; J1439

== ENCOUNTER 2019-06-14 09:23 | Day surgery (SDC) | payer BC ==
[2019-06-14] MEDS ORDERED: FERRIC CARBOXYMALTOSE 750 MG in SODIUM CHLORIDE 250 ML IVPB ONE (10:30)
[2019-06-14 10:36] VITALS: TEMP 98
[2019-06-14 13:27] VITALS: BP 111/67; PULSE 88
== END 2019-06-14 13:23 | disposition home or self-care (01) ==
LOC: JINFUSION 09:23 → J7W 09:26 → JINFUSION 13:23
PROVIDERS: ATTEND Internal Medicine Gastroenterology
PROC: 3E033GC Introduction of Other Therapeutic Substance into Peripheral Vein, Percutaneous Approach (ICD-10-PCS; principal; 2019-06-14)
DX: D64.9 Anemia, unspecified (principal)
CPT/HCPCS: 96365; J1439